=== PATIENT | male | born 1935 | race Caucasian/White ===

== ENCOUNTER → 2016-07-08 | Outpatient (CLI) | payer MEDICARE, BC | LOC: GMAJ 15:08 | PROVIDERS: ATTEND Family Medicine | DX: Z12.5 Encounter for screening for malignant neoplasm of prostate (principal) ==

== ENCOUNTER → 2016-07-13 | Outpatient (CLI) | payer MEDICARE, BC ==
--- NOTE | 2016-07-14 05:09 | CT ---
EXAM DESCRIPTION: CT ABDOMEN PELVIS WITH IV CONTRAST CLINICAL HISTORY: 81 y/o , M, ABD PAIN COMPARISON: None. TECHNIQUE: Multiple computerized axial tomographic images were obtained of the abdomen and pelvis following administration of IV contrast. FINDINGS: The visualized lung bases are clear. Millimetric cysts seen within the superior pole of both kidneys. Otherwise, the kidneys are unremarkable. The liver, gallbladder, spleen, adrenal glands, pancreas, and pancreatic and biliary ducts are unremarkable. No oral contrast administered. Stomach and small bowel are within normal limits without evidence of obstruction or mass lesion. There is a moderate left-sided inguinal hernia that contains a small loop of sigmoid colon without evidence of obstruction. There is no strangulation or inflammatory change within the sternal defect. The abdominal aorta and IVC are of normal caliber. No intra-abdominal lymphadenopathy or abnormal intra-abdominal fluid collection appreciated. No free fluid or free air identified. No mesenteric masses or adenopathy. The bladder is unremarkable. There is no acute osseous pathology. There is multilevel degenerative disc findings and facet arthrosis as well as bilateral hip osteoarthritis. IMPRESSION: Left lower quadrant inguinal hernia containing both fat and a small knuckle of sigmoid colon without evidence of obstruction. Osseous degenerative changes as above. Electronically signed by: Ha Roberts 07/14/2016 05:06
== END | disposition home or self-care (01) ==
LOC: CT 07:49
PROVIDERS: ATTEND Family Medicine
DX: R10.84 Generalized abdominal pain (principal)

== ENCOUNTER 2016-07-27 08:00 | Day surgery (SDC) | payer MEDICARE, BC ==
--- NOTE | 2016-07-23 12:18 | RAD ---
Study: Frontal and Lateral Views of the Chest. Indication: Pre-op Comparison: None. Impression: Cardiomegaly. Thoracic aorta tortuous. Emphysema. Otherwise, lungs clear. Degenerative changes of the spine noted. Osteopenia. If this is a new finding, DEXA scan recommended as well as evaluation for possible osteoporosis treatment. Electronically signed by: Deejay Medina MD 07/23/2016 12:18 PM VISUAL BASIC PROGRAMMER
[~2016-07-27 08:00] MED LIST: LACTATED RINGERS 1,000 ML BAG IV ONE; LACTATED RINGERS 1,000 ML ONE; LIDOCAINE 2 % GEL 5 ML TUBE TOP ONE; SODIUM CHL 0.9% 100ML MINI-BAG 100 ML IVPB ONE; ceFAZolin SODIUM 1 GM VIAL ONE; fentaNYL CITRATE INJ 50 MCG/ML AMP ONE
[2016-07-27] MEDS: BUPIVACAINE 0.25% W/EPI 50 ML VIAL INJ ONE ×2 (08:46→08:54)
--- NOTE | 2016-07-27 10:35 | OP ---
DATE OF PROCEDURE: 07/27/16 PREOPERATIVE DIAGNOSIS: 1. Incarcerated left inguinal hernia. POSTOPERATIVE DIAGNOSIS: 1. Incarcerated left inguinal hernia. PROCEDURE: 1. Repair of incarcerated left inguinal hernia. SURGEON: Kavin Rey MD. REQUIREMENTS MANAGER: None. ANESTHESIA: General endotracheal anesthesia and local infiltration of 0.25% Marcaine with epinephrine. INDICATION: The patient is an 81-year-old male who has had a hernia for several years that has become much more symptomatic recently and impossible to reduce. He was brought to the Surgical Suite today for repair of same after the risks, benefits and alternatives to the procedure were discussed and accepted. FINDINGS: The patient had a large indirect inguinal hernia that was not reducible. It did have bowel within it. No other pathology was identified. PROCEDURE: After adequate general endotracheal anesthesia was obtained, the patient was prepped and draped in the usual sterile manner. After a surgical time-out, an oblique incision was fashioned in the left groin, first with a marking pen and then with infiltration of anesthesia. Dissection was carried down through the skin and subcutaneous tissue to the external oblique fascia using electrocautery and blunt dissection and clamps and ligatures of 3-0 Vicryl. Self-retaining retractor was placed at this level and the external oblique fascia was opened in the direction of the fibers through the external inguinal ring. At this point, the cord was dissected from from the external oblique fascia superiorly and inferiorly. The nerve was identified at the cord , dissected free, and retracted superiorly. The cord was then dissected free from the floor of the canal with blunt dissection and some electrocautery. A half inch [place] drain was placed around it for traction. When this was done, the cord was explored with the indirect hernia sac identified, dissected free down to the level of the internal inguinal ring and reduced below the floor of the canal. When this was done, a Surgimesh patch was introduced under the floor of the canal and sutured circumferentially with interrupted 2-0 Vicryl sutures. When this was done, the wound was irrigated copiously with saline. Hemostasis was noted to be adequate, so at this point the Surgimesh patch was sutured around the cord in the usual manner with interrupted 2-0 Vicryl sutures. Again the wound was irrigated with saline. Hemostasis was noted to be adequate. The nerve was placed back in position. At this point, the external oblique fascia was closed with a running 3-0 Vicryl suture. There was also a small hole in the external oblique fascia from the retractor and this was closed with a simple [id number] suture of 3-0 Vicryl. Again, the wound was irrigated with saline, then the cord and subcutaneous tissue above, below, and lateral to the incision were infiltrated with local anesthesia. Kenisha's fascia was approximated with interrupted 3-0 Chromic suture. The skin edges were approximated with a skin stapler. Sterile dressing was applied. The testicle was checked for position in the scrotum. The patient was awakened and taken to the Recovery Room in stable condition. Estimated blood loss was approximately 50 mL. All sponge, needle and instrument counts were correct. #[id number] [facility]
[2016-07-27 10:49] VITALS: O2SAT 95
[2016-07-27 11:35] VITALS: BP 117/72; TEMP 98.3
[2016-07-27] MEDS ORDERED: LIDOCAINE 1% 10 ML VIAL INJ ONE (12:00)
[2016-07-27] MEDS ORDERED: METOCLOPRAMIDE HCL INJ 10 MG/2 ML VIAL IV ONE (12:00)
[2016-07-27] MEDS ORDERED: PROPOFOL 200 MG/20 ML VIAL IV ONE (12:00)
[2016-07-27] MEDS ORDERED: ATROPINE SULFATE 0.4 MG/ML 1ML VIAL IV ONE (12:00)
== END 2016-07-27 11:40 | disposition home or self-care (01) ==
LOC: AMB 08:00
PROVIDERS: ATTEND Surgery
DX: K40.30 Unilateral inguinal hernia, with obstruction, without gangrene, not specified as recurrent (principal); I48.91 Unspecified atrial fibrillation; Z79.82 Long term (current) use of aspirin
CPT/HCPCS: 00830; 49507; 71020; 93005; C1781; J0690; J2765; J3010; J3490; J7050; J7120

== ENCOUNTER → 2017-06-15 | Outpatient (CLI) | payer MEDICARE | END | disposition home or self-care (01) | LOC: LAB.O 07:53 | PROVIDERS: ATTEND Nurse Practitioner Family | DX: I48.0 Paroxysmal atrial fibrillation (principal); I10 Essential (primary) hypertension ==

== ENCOUNTER → 2018-06-23 | Outpatient (CLI) | payer MEDICARE | LOC: LAB.O 08:18 | PROVIDERS: ATTEND Nurse Practitioner Family | DX: I10 Essential (primary) hypertension (principal); I48.0 Paroxysmal atrial fibrillation ==

== ENCOUNTER → 2018-09-14 | Outpatient (CLI) | payer MEDICARE | LOC: LAB.O 09:12 | PROVIDERS: ATTEND Family Medicine | DX: Z12.5 Encounter for screening for malignant neoplasm of prostate (principal) | CPT/HCPCS: 36415; G0103 ==

== ENCOUNTER → 2020-03-11 | Outpatient (CLI) | payer MEDICARE | LOC: LAB.O 08:24 | PROVIDERS: ATTEND Family Medicine | DX: I48.91 Unspecified atrial fibrillation (principal); R97.20 Elevated prostate specific antigen [PSA]; Z79.899 Other long term (current) drug therapy ==